=== PATIENT | male | born 1980 | race Caucasian/White ===

== ENCOUNTER 2018-09-29 19:59 | Emergency (ER) | payer BC ==
[2018-09-29 20:41] LABS: #Basophils 0.1 thou/uL (0.0-0.2); #Eosinphils 0.2 thou/uL (0.0-0.7); #Lymphocytes 2.9 thou/uL (1.20-3.40); #Monocytes 0.5 thou/uL (0.11-0.59); #Neutrophils 3.8 thou/uL (1.40-6.50); %Eosinophils 2.6 % (0.0-10.0); %Lymphocytes 38.5 % (21.0-51.0); %Monocytes 7.2 % (0.0-10.0); %Neutrophils 50.7 % (42.0-75.0); Hemoglobin 14.7 g/dL (14.0-18.0); Mean Corpuscular HGB CONC 33.8 g/dL (32.0-36.0); Mean Corpuscular Hemoglobin 27.2 pg (27.0-31.0); Mean Corpuscular Volume 80.5 fL (78.0-98.0); Mean Platelet Volume 8.7 fL (7.4-10.4); Platelet Count 233 thou/uL (130-400); RBC Distribution Width 11.1 % (11.5-14.5); Red Blood Cell (RBC) Count 5.41 mill/uL (4.70-6.10); White Blood Cell (WBC) Count 7.5 thou/uL (4.8-10.8)
[2018-09-29 20:44] LABS: INR-International Normal Ratio 0.9; PTT 25.4 SEC (22.9-36.1); Prothrombin Time 12.7 SEC (12.0-14.7)
[2018-09-29 20:55] LABS: ALT (SGPT) 38 U/L (8-55); AST (SGOT) 30 U/L (5-34); Albumin 4.7 g/dL (3.5-5.0); Alkaline Phosphatase 82 U/L (40-150); Anion Gap 14 mmol/L (10-20); BUN (Urea Nitrogen) 15 mg/dL (8.9-20.6); Bilirubin, Total 0.6 mg/dL (0.2-1.2); Calc. Creatinine Clearance 0 mL/min (70-130); Calcium 9.8 mg/dL (7.8-10.44); Carbon Dioxide 27 mmol/L (22-29); Chloride 101 mmol/L (98-107); Estimated GFR-MDRD 83; Globulin 3.2 g/dL (2.4-3.5); Glucose 99 mg/dL (70-105); Lipase 28 U/L (8-78); Potassium 3.6 mmol/L (3.5-5.1); Protein, Total 7.9 g/dL (6.0-8.3); Sodium 138 mmol/L (136-145)
[2018-09-29] MEDS ORDERED: Morphine 4 MG/ML Carpuject ONE (21:31)
[2018-09-29] MEDS ORDERED: Ondansetron PF 4 MG/2 ML Vial ONE (21:31)
--- NOTE | 2018-09-29 22:24 | ULT ---
LEFT LOWER EXTREMITY VENOUS DOPPLER: 09/29/2018 PROVIDED CLINICAL HISTORY: Left leg pain and swelling. FINDINGS: Story scale and color Doppler sonography with spectral analysis was performed of the left common femor al, femoral, popliteal, posterior tibial, greater saphenous, and profunda femoral veins. The evaluat ed deep venous structures demonstrate a normal sonographic appearance. There is luminal echogenicity and noncompressibility involving the saphenous vein in the calf. IMPRESSION: Superficial vein thrombus in the calf. No evidence for deep venous thrombosis. POS: [facility]
== END 2018-09-29 22:37 | disposition home or self-care (01) ==
LOC: SCSER 19:59
DX: I80.02 Phlebitis and thrombophlebitis of superficial vessels of left lower extremity (principal)
CPT/HCPCS: 80053; 83690; 85025; 85610; 85730; 96374; 96375; J2270; J2405

== ENCOUNTER 2018-10-15 12:27 | Outpatient (CLI) | payer BC ==
--- NOTE | 2018-10-15 14:52 | ULT ---
LEFT LOWER EXTREMITY VENOUS DOPPLER ULTRASOUND EVALUATION: History: Redness of thighs. Technique: Multiple longitudinal and transverse images of the left lower extremity venous system obta ined using a multihertz linear array transducer. FINDINGS: Real-time, color flow, and spectral waveform with doppler analysis demonstrates no evidence of acute or clot seen in the left common femoral vein, femoral profunda, superficial femoral vein, popliteal v ein, posterior tibial vein and greater saphenous veins. Noncompressible clot seen in the left superficial veins of the lower extremity in the region of the c skilled nursing. IMPRESSION: 1. No evidence of deep venous thrombosis. 2. Noncompressible clot remains in the superficial venous system of the left calf. POS: [facility]
== END 2018-10-15 12:28 | disposition home or self-care (01) ==
LOC: SCSULT 12:27
PROVIDERS: ATTEND Internal Medicine Hematology & Oncology
DX: I82.812 Embolism and thrombosis of superficial veins of left lower extremity (principal); M79.605 Pain in left leg; R60.0 Localized edema
CPT/HCPCS: 36415; 85379